=== PATIENT | female | born 2000 | race Caucasian/White ===

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

== ENCOUNTER → 2019-03-21 13:40 | Outpatient (CLI) | payer MEDICAID ==
[2018-07-25 23:31] VITALS: BMI 33.3
[~2019-03-21 13:40] MED LIST changes: +BACLOFEN20 M1 PO; +TORADOL10 MG PO
== END | disposition home or self-care (01) ==
LOC: D.US 03-16 14:00
PROVIDERS: ATTEND Student in an Organized Health Care Education/Training Program
DX: N63.11 Unspecified lump in the right breast, upper outer quadrant (principal)

== ENCOUNTER 2019-03-23 16:48 | Emergency (ER) | payer MEDICAID ==
[~2019-03-23] VITALS: Ht 165.1 cm; Wt 113.6 kg
[~2019-03-23 16:48] MED LIST changes: -BACLOFEN20 M1 PO
[2019-03-23 17:11] VITALS: Ht 165.1 cm; Wt 113.6 kg
[2019-03-23] MEDS ORDERED: VOLTAREN75 MG PO (18:09)
[2019-03-23] MEDS ORDERED: BACLOFEN20 M1 PO (18:09)
[2019-03-23 18:30] VITALS: BP 93/72
== END 2019-03-23 18:30 | disposition home or self-care (01) ==
LOC: D.ER 16:48
DX: M79.601 Pain in right arm (principal)